=== PATIENT | female | born 1990 | race Caucasian/White ===

== ENCOUNTER 2017-09-23 09:07 | Outpatient (CLI) | payer OTHER | END 2017-09-23 09:17 | disposition home or self-care (01) | LOC: SONOGRAMA 09:07 | DX: E04.2 Nontoxic multinodular goiter (principal); E03.8 Other specified hypothyroidism; E06.3 Autoimmune thyroiditis; D72.828 Other elevated white blood cell count; E28.2 Polycystic ovarian syndrome ==

== ENCOUNTER → 2017-09-23 | Outpatient (CLI) | payer OTHER | END | disposition home or self-care (01) | LOC: LAB 07:20 | DX: D72.828 Other elevated white blood cell count (principal); E28.2 Polycystic ovarian syndrome; D50.8 Other iron deficiency anemias; D51.8 Other vitamin B12 deficiency anemias; I10 Essential (primary) hypertension; D55.0 Anemia due to glucose-6-phosphate dehydrogenase [G6PD] deficiency; D51.1 Vitamin B12 deficiency anemia due to selective vitamin B12 malabsorption with proteinuria; D51.0 Vitamin B12 deficiency anemia due to intrinsic factor deficiency; E03.8 Other specified hypothyroidism; E06.3 Autoimmune thyroiditis; E11.8 Type 2 diabetes mellitus with unspecified complications ==

== ENCOUNTER 2017-11-08 07:42 | Outpatient (CLI) | payer OTHER | END 2017-11-08 07:45 | disposition home or self-care (01) | LOC: SONOGRAMA 07:42 | DX: E04.2 Nontoxic multinodular goiter (principal) ==

== ENCOUNTER → 2018-01-18 | Outpatient (CLI) | payer OTHER | END | disposition home or self-care (01) | LOC: LAB 10:53 | DX: D72.828 Other elevated white blood cell count (principal); E06.3 Autoimmune thyroiditis; D51.3 Other dietary vitamin B12 deficiency anemia; D51.1 Vitamin B12 deficiency anemia due to selective vitamin B12 malabsorption with proteinuria; E04.1 Nontoxic single thyroid nodule; E03.8 Other specified hypothyroidism ==

== ENCOUNTER → 2018-04-20 06:27 | Outpatient (CLI) | payer OTHER | END | disposition home or self-care (01) | LOC: LAB 06:27 | DX: D72.828 Other elevated white blood cell count (principal); E06.3 Autoimmune thyroiditis; D51.3 Other dietary vitamin B12 deficiency anemia; D51.1 Vitamin B12 deficiency anemia due to selective vitamin B12 malabsorption with proteinuria; E04.1 Nontoxic single thyroid nodule; E03.8 Other specified hypothyroidism; D50.8 Other iron deficiency anemias; D51.8 Other vitamin B12 deficiency anemias; I10 Essential (primary) hypertension; K90.89 Other intestinal malabsorption ==

== ENCOUNTER 2018-07-21 07:42 | Outpatient (CLI) | payer OTHER | END 2018-07-21 07:50 | disposition home or self-care (01) | LOC: LAB 07:42 | DX: D72.828 Other elevated white blood cell count (principal); E06.3 Autoimmune thyroiditis; D51.3 Other dietary vitamin B12 deficiency anemia; D51.1 Vitamin B12 deficiency anemia due to selective vitamin B12 malabsorption with proteinuria; E04.1 Nontoxic single thyroid nodule; E03.8 Other specified hypothyroidism; D50.8 Other iron deficiency anemias; D51.8 Other vitamin B12 deficiency anemias; I10 Essential (primary) hypertension; K90.89 Other intestinal malabsorption; R97.0 Elevated carcinoembryonic antigen [CEA]; R97.8 Other abnormal tumor markers ==

== ENCOUNTER 2018-10-19 06:49 | Outpatient (CLI) | payer OTHER | END 2018-10-19 15:00 | disposition home or self-care (01) | LOC: LAB 06:49 | DX: E03.8 Other specified hypothyroidism (principal); D72.828 Other elevated white blood cell count; E06.3 Autoimmune thyroiditis; D51.3 Other dietary vitamin B12 deficiency anemia; D51.1 Vitamin B12 deficiency anemia due to selective vitamin B12 malabsorption with proteinuria; E04.1 Nontoxic single thyroid nodule; D50.8 Other iron deficiency anemias; D51.8 Other vitamin B12 deficiency anemias; I10 Essential (primary) hypertension; R97.0 Elevated carcinoembryonic antigen [CEA]; R97.8 Other abnormal tumor markers; K90.89 Other intestinal malabsorption ==

== ENCOUNTER → 2019-01-17 06:52 | Outpatient (CLI) | payer OTHER | END | disposition home or self-care (01) | LOC: LAB 06:52 | DX: E06.3 Autoimmune thyroiditis (principal); D72.828 Other elevated white blood cell count; D51.3 Other dietary vitamin B12 deficiency anemia; D51.1 Vitamin B12 deficiency anemia due to selective vitamin B12 malabsorption with proteinuria; E04.1 Nontoxic single thyroid nodule; E03.8 Other specified hypothyroidism ==

== ENCOUNTER 2019-01-26 06:36 | Outpatient (CLI) | payer OTHER | END 2019-01-26 06:44 | disposition home or self-care (01) | LOC: LAB 06:36 | DX: D72.828 Other elevated white blood cell count (principal); E06.3 Autoimmune thyroiditis; D51.3 Other dietary vitamin B12 deficiency anemia; D51.1 Vitamin B12 deficiency anemia due to selective vitamin B12 malabsorption with proteinuria; E04.1 Nontoxic single thyroid nodule; E03.8 Other specified hypothyroidism ==

== ENCOUNTER 2019-01-26 07:14 | Outpatient (CLI) | payer OTHER | END 2019-01-26 07:17 | disposition home or self-care (01) | LOC: SONOGRAMA 07:14 | DX: E06.3 Autoimmune thyroiditis (principal); D72.828 Other elevated white blood cell count; D51.3 Other dietary vitamin B12 deficiency anemia; D51.1 Vitamin B12 deficiency anemia due to selective vitamin B12 malabsorption with proteinuria; E04.1 Nontoxic single thyroid nodule; E03.8 Other specified hypothyroidism ==

== ENCOUNTER → 2019-03-12 06:50 | Outpatient (CLI) | payer OTHER | END | disposition home or self-care (01) | LOC: LAB 06:50 | DX: D72.828 Other elevated white blood cell count (principal); E06.3 Autoimmune thyroiditis; D51.3 Other dietary vitamin B12 deficiency anemia; D51.1 Vitamin B12 deficiency anemia due to selective vitamin B12 malabsorption with proteinuria; E04.1 Nontoxic single thyroid nodule; E03.8 Other specified hypothyroidism ==

== ENCOUNTER 2019-08-09 06:48 | Outpatient (CLI) | payer OTHER | END 2019-08-09 06:53 | disposition home or self-care (01) | LOC: LAB 06:48 | DX: M54.5 Low back pain (principal); M25.50 Pain in unspecified joint ==

== ENCOUNTER 2019-08-09 08:12 | Outpatient (CLI) | payer OTHER | END 2019-08-09 09:00 | disposition home or self-care (01) | LOC: NUCLEAR 08:12 | DX: M25.50 Pain in unspecified joint (principal); R79.82 Elevated C-reactive protein (CRP) | CPT/HCPCS: 78315; A9503 ==

== ENCOUNTER → 2019-11-24 08:00 | Outpatient (CLI) | payer OTHER | END | disposition home or self-care (01) | LOC: LAB 08:00 | PROVIDERS: ATTEND Internal Medicine Sports Medicine | DX: E03.8 Other specified hypothyroidism (principal); E04.8 Other specified nontoxic goiter ==

== ENCOUNTER 2020-02-05 08:23 | Outpatient (CLI) | payer OTHER | END 2020-02-05 08:59 | disposition home or self-care (01) | LOC: LAB 08:23 | PROVIDERS: ATTEND Internal Medicine Hematology & Oncology | DX: D51.3 Other dietary vitamin B12 deficiency anemia (principal); E06.3 Autoimmune thyroiditis; D72.828 Other elevated white blood cell count; D51.1 Vitamin B12 deficiency anemia due to selective vitamin B12 malabsorption with proteinuria; E04.1 Nontoxic single thyroid nodule; E03.8 Other specified hypothyroidism; E78.00 Pure hypercholesterolemia, unspecified; N39.0 Urinary tract infection, site not specified; A63.8 Other specified predominantly sexually transmitted diseases; E88.81 Metabolic syndrome and other insulin resistance; D50.8 Other iron deficiency anemias ==

== ENCOUNTER → 2020-05-14 08:36 | Outpatient (CLI) | payer OTHER | END | disposition home or self-care (01) | LOC: LAB 08:36 | PROVIDERS: ATTEND Internal Medicine Sports Medicine | DX: D64.89 Other specified anemias (principal); E11.9 Type 2 diabetes mellitus without complications; E78.2 Mixed hyperlipidemia; I10 Essential (primary) hypertension; E03.8 Other specified hypothyroidism ==

== ENCOUNTER 2021-01-22 06:40 | Outpatient (CLI) | payer OTHER | END 2021-01-22 06:41 | disposition home or self-care (01) | LOC: LAB 06:40 | PROVIDERS: ATTEND Internal Medicine Sports Medicine | DX: D64.89 Other specified anemias (principal); E11.9 Type 2 diabetes mellitus without complications; E78.2 Mixed hyperlipidemia; I10 Essential (primary) hypertension; E03.8 Other specified hypothyroidism; D72.828 Other elevated white blood cell count; D50.8 Other iron deficiency anemias; D51.8 Other vitamin B12 deficiency anemias; E06.3 Autoimmune thyroiditis; D51.3 Other dietary vitamin B12 deficiency anemia; D51.1 Vitamin B12 deficiency anemia due to selective vitamin B12 malabsorption with proteinuria; E04.1 Nontoxic single thyroid nodule ==

== ENCOUNTER 2021-01-26 08:00 | Outpatient (CLI) | payer OTHER | END 2021-01-26 08:30 | disposition home or self-care (01) | LOC: PPH VACUNA 08:00 | DX: Z23 Encounter for immunization (principal) ==

== ENCOUNTER 2021-02-17 08:00 | Outpatient (CLI) | payer OTHER | END 2021-02-17 08:30 | disposition home or self-care (01) | LOC: PPH VACUNA 08:00 | PROVIDERS: ATTEND Emergency Medicine Pediatric Emergency Medicine | DX: Z23 Encounter for immunization (principal) ==